=== PATIENT | male | born 1955 | race Caucasian/White ===

== ENCOUNTER 2024-11-11 15:48 | Emergency (ER) | payer OTHER, SELFPAY ==
[2024-11-11 15:50] VITALS: BP 159/102
--- NOTE | 2024-11-11 19:33 | ED.GENMED ---
History of Present Illness
<Love Ribera PA-C - Last Filed: 11/11/24 22:38>
General
Chief Complaint: Skin Surface Trauma
Source: patient
Exam Limitations: none
Time Seen by Provider: 11/11/24 19:30
Nursing documentation reviewed up to this point in time: agreed with
History of Present Illness
History of Present Illness:
68-year-old male with past medical's of hypertension, diverticulitis, does not take any blood thinner presents emergency department today with concerns of mechanical fall. Patient reports that he was helping his family move a car attachment trailer
when he lost his footing and tripped and fell, landing and hitting his forehead. Patient states that he endured a deep laceration above his left eyebrow but denies any headache denies any loss of consciousness denies any neck pain denies any
dizziness. He denies any nausea or vomiting. He states that he currently feels well and does not have any other symptoms other than some mild burning at the site of laceration. He is not up-to-date on his tetanus vaccine.
Past History
<Love Ribera PA-C - Last Filed: 11/11/24 22:38>
Past History
ED Past Medical History: HTN and Other (Diverticular GI bleed 2016; cholelithiasis)
ED Past Surgical History: Other (Inguinal hernia repair)
Social History
Tobacco: Non-smoker
Alcohol: None
Personal:
Living: with family
Employment: Employed (Self-employed)
Family History
Family History: Other (Noncontributory)
Review of Systems
<JERRELL Huang Last Filed: 11/11/24 22:38>
Review of Systems
All Other Systems: ROS reviewed and negative except as documented in HPI and ROS
Phy Exam
<Love Ribera PA-C - Last Filed: 11/11/24 22:38>
Physical Exam
Physical Exam:
General: Patient is well appearing and in no acute distress; non-toxic
Skin: Warm and dry, 2 cm laceration with associated bleeding abrasion noted to the area above the left eyebrow.
Head: Normocephalic, atraumatic, TMJ joints intact bilaterally, no tenderness palpation of the facial bones
Eyes: Sclera non-icteric. EOMs intact.
Cardiac: Regular rate and rhythm, no murmurs
Peripheral Vascular: No lower extremity swelling or edema
Pulm: Normal respiratory effort
Abdomen: No abdominal tenderness to palpation
Musculoskeletal: Degenerative palpation of the left upper extremity, full range of motion bilateral extremities, 5 out of 5 strength in bilateral upper and lower extremities
Neuro: CN II-XII intact, no focal neurologic deficits.
Psychiatric: Appropriate mood and affect.
Course
<Love Ribera PA-C - Last Filed: 11/11/24 22:38>
Orders/Labs/Results
Orders:
Orders
11/11/24 19:49
CT Head W/o Iv Contrast Urgent
Comment:
Reason For Exam: head trauma, headache
11/11/24 20:01
Tetanus/Diphth/Acelpertussis [Adacel] 0.5 ml IM .ONCE ONE
Vital Signs
Initial and Last Documented VS:
Initial Vital Signs
Temp Pulse Resp BP Pulse Ox
98.4 F 99 16 159/102 98
11/11/24 15:50 11/11/24 15:50 11/11/24 15:50 11/11/24 15:50 11/11/24 15:50
Last Documented Vital Signs
Temp Pulse Resp BP Pulse Ox
98.4 F 99 18 142/78 98
11/11/24 15:50 11/11/24 15:50 11/11/24 20:03 11/11/24 19:55 11/11/24 15:50
<Alirio Boyer DO - Last Filed: 11/11/24 20:15>
Orders/Labs/Results
Orders:
Orders
11/11/24 19:49
CT Head W/o Iv Contrast Urgent
Comment:
Reason For Exam: head trauma, headache
11/11/24 20:01
Tetanus/Diphth/Acelpertussis [Adacel] 0.5 ml IM .ONCE ONE
Vital Signs
Initial and Last Documented VS:
Initial Vital Signs
Temp Pulse Resp BP Pulse Ox
98.4 F 99 16 159/102 98
11/11/24 15:50 11/11/24 15:50 11/11/24 15:50 11/11/24 15:50 11/11/24 15:50
Last Documented Vital Signs
Temp Pulse Resp BP Pulse Ox
98.4 F 99 18 142/78 98
11/11/24 15:50 11/11/24 15:50 11/11/24 20:03 11/11/24 19:55 11/11/24 15:50
Procedures
<Love Ribera PA-C - Last Filed: 11/11/24 22:38>
Laceration Closure
Left Superior Eye brow:
Status of Wound: clean
Size of Wound in cm: 2
Description of Wound Edges: sharp and ragged
Preparation: cleaned with saline
Anesthesia: 1% Lidocaine with epi
Wound exploration: explored to base- no FB
Type of Closure: single layer closure
Skin Closure Material: 4-0 prolene
Number of sutures: 5
Additional information:
4 simple interrupted sutures placed, 1 figure of 8 suture placed for hemostasis over abrasion
<Love Ribera PA-C - Last Filed: 11/11/24 22:38>
MDM/Problems Addressed
Differential Diagnosis Includes:
see below
MDM/Problems Addressed:
Differentials include laceration, abrasion, subdural hematoma, epidural hematoma, concussion
68 female presents urgency department today following a fall and head strike. CT of the head normal. Laceration repaired with stitches by me and transitional year resident. Tetanus updated. Patient stable for discharge.
Chronic conditions affecting care:
n/a
<Love Ribera PA-C - Last Filed: 11/11/24 22:38>
*Pulse Oximetry
Patient hypoxic: no
*Critical Care Note
Total Time (30-74mins, 75-104mins- exclusive of procedures): Not Applicable
Data Reviewed
Review of Other/Old Records Reveals: Records
<JERRELL Huang Last Filed: 11/11/24 22:38>
Patient Management
Escalation/DeEscalation of care consider admission/obs:
reviewed case with my attending
patient stable for discharg r
ED Attending Note
<Love Ribera PA-C - Last Filed: 11/11/24 22:38>
-
Portions of this chart may have been created with voice recognition software.� Occasional wrong word or��sound alike� substitutions may have occurred due to the inherent limitations of voice recognition software.
<Alirio Boyer DO - Last Filed: 11/11/24 20:15>
ED Attending Note
Patient seen and examined by attending physician: Yes
I performed the substantive portion of visit, reviewed & personally made and approve the management plan that is documented in note by myself or WIL.: Yes
Discharge Plan
Departure
Patient Disposition: Home (Routine Discharge)
Date of Disposition: 11/11/24
Time of Disposition: 21:39
Patient with high blood pressure during this ER visit?: Yes
Condition: Good
Discharge Problem:
Laceration of forehead, Head injury due to trauma
Instructions: Wound Care (DC), Laceration Repair With Stitches (DC), BLOOD PRESSURE
Prescriptions:
No Action
lisinopril 10 MG tablet
10 mg PO HS
ntqbvuhb-pez-NR-lycopen-lutein [Centrum Silver] 1 EACH tablet
1 ea PO DAILY
acetaminophen [Tylenol Extra Strength] 500 MG tablet
1,000 mg PO Q6HPRN PRN (Reason: pain)
ibuprofen 200 MG tablet
600 mg PO QIDPRN PRN (Reason: pain) Qty: 1 0RF
oxycodone-acetaminophen 5 MG/325 MG tablet
1 tab PO Q4HPRN PRN (Reason: pain not relieved by ibuprofen) Qty: 15 0RF
Referrals:
UNKNOWN - PT DOES,NOT KNOW [Family Provider] -
Activity Restrictions/Additional Instructions:
Your CT scan of the head was normal.
5 stitches were placed in total. 4 simple interrupted stitches were placed and 1 cjehrz-ty-yxnmg stitch was placed. These can be removed in 10 days by your primary care provider.
Please keep the wound dry for 24 hours. After 24 hours, you can let warm soapy water run over the wound. Please not scrub the wound. You can apply bacitracin to the wound once daily. You can cover the wound with a nonadherent pad.
PLEASE RETURN EMERGENCY DEPARTMENT SHOULD YOU EXPERIENCE PURULENT DRAINAGE FROM THE WOUND, SURROUNDING SWELLING FROM THE WOUND, INCREASING PAIN, PERSISTENT HEADACHE, INTRACTABLE NAUSEA OR VOMITING, CHEST PAIN, SHORTNESS OF BREATH, OR ANY OTHER SIGNS
OR SYMPTOMS WORRISOME TO YOU.
Interventions
Interventions:
*Risk Screen - Suicide Last Done: 11/11/24 15:50
*General Assessment Last Done: 11/11/24 19:51
*Neglect/Abuse Screening Last Done: 11/11/24 19:51
ED- Fall Risk Assessment Last Done: 11/11/24 19:51
*ED COVID-19 Vaccine History Last Done: 11/11/24 19:51
*Nursing Disposition Last Done: 11/11/24 21:44
ED-Skin Assessment Last Done: 11/11/24 19:51
Discharge Date and Time
Discharge Date/Time: 11/11/24 21:44
Print Language: NIGERIEN
[2024-11-11 19:51] VITALS: BMI 28.5
[2024-11-11 19:55] VITALS: BP 142/78
[2024-11-11] MEDS: ADACEL 0.5 ML IM (20:09)
== END 2024-11-11 21:44 | disposition home or self-care (01) ==
LOC: EMR 15:48
PROVIDERS: EMERGENCY PHYSICIAN Emergency Medicine
DX: S01.81XA Laceration without foreign body of other part of head, initial encounter (principal); S09.90XA Unspecified injury of head, initial encounter; W01.0XXA Fall on same level from slipping, tripping and stumbling without subsequent striking against object, initial encounter; I10 Essential (primary) hypertension; Z23 Encounter for immunization
CPT/HCPCS: 99284; 12011; 90471; 70450; 90715

== ENCOUNTER 2024-12-21 12:15 | Emergency (ER) | payer SELFPAY ==
[2024-12-21 12:17] VITALS: BP 133/81
--- NOTE | 2024-12-21 13:57 | ED.SKININJ ---
HPI-Injury
General
Chief Complaint: Skin Surface Trauma
Source: patient
Exam Limitations: none
Time Seen by Provider: 12/21/24 13:34
Nursing documentation reviewed up to this point in time: agreed with
History of Present Illness-Injury
Is this injury a work related problem?: Yes
Is pt an associate of [facility]?: No
Initial Injury comments:
68-year-old male states he was at work when he caught a piece of metal equipment that was falling and lacerated the webspace between his right ring and 5th fingers. Tdap in 10/2024
Past History
Past History
ED Past Medical History: HTN and Other (Diverticular GI bleed 2016; cholelithiasis)
ED Past Surgical History: Other (Inguinal hernia repair)
Social History
Tobacco: Non-smoker
Alcohol: None
Personal:
Living: with family
Employment: Employed (Self-employed)
Family History
Family History: Other (Noncontributory)
Review of Systems
Review of Systems
Allergies reviewed?: Yes
All Other Systems: ROS reviewed and negative except as documented in HPI and ROS
Skin: Reports other (Cut right hand)
Skin Exam
Laceration
Webspace between right fourth and fifth fingers:
Length in cm: 0.6
Orientation: vertical
Type of Laceration: simple
Any active bleeding?: low grade venous oozing
Distal skin color and temperature: normal-warm & good color
Normal distal neurovascular exam: Yes
Range of motion: full
Phy Exam
Physical Exam
Physical Exam:
PHYSICAL EXAMINATION:
General: no apparent distress, not acutely ill
Neuro: alert and oriented.
Psychiatric: well kept. interactive and cooperative
Musculoskeletal: Moves with ease
Skin: Warm, pink.
Course
Vital Signs
Initial and Last Documented VS:
Initial Vital Signs
Temp Pulse Resp BP Pulse Ox
98.4 F 66 18 133/81 95
12/21/24 12:17 12/21/24 12:17 12/21/24 12:17 12/21/24 12:17 12/21/24 12:17
Last Documented Vital Signs
Temp Pulse Resp BP Pulse Ox
98.4 F 66 18 133/81 95
12/21/24 12:17 12/21/24 12:17 12/21/24 12:17 12/21/24 12:17 12/21/24 12:17
Procedures
Laceration Closure
Webspace between right fourth and fifth fingers:
Status of Wound: clean
Size of Wound in cm: 0.8
Description of Wound Edges: sharp
Preparation: cleaned with soap & water
Anesthesia: 1% Lidocaine
Revision/Debridement: routine- no revision
Wound exploration: explored to base- no FB and no tendon involvement
Type of Closure: single layer closure and interrupted sutures
Skin Closure Material: 4-0 nylon
Number of sutures: 2
Additional information:
Antibiotic ointment and Band-Aid applied
MDM/Problems Addressed
MDM/Problems Addressed:
68-year-old male states he was at work when he caught a piece of metal equipment that was falling and lacerated the webspace between his right ring and 5th fingers. Tdap in 10/2024
*Critical Care Note
Total Time (30-74mins, 75-104mins- exclusive of procedures): Not Applicable
ED Attending Note
-
Portions of this chart may have been created with voice recognition software.� Occasional wrong word or��sound alike� substitutions may have occurred due to the inherent limitations of voice recognition software.
Discharge Plan
Departure
Patient Disposition: Home (Routine Discharge)
Date of Disposition: 12/21/24
Time of Disposition: 13:57
Patient with high blood pressure during this ER visit?: No
Condition: Good
Discharge Problem:
Laceration of right hand
Instructions: Laceration Repair With Stitches (DC)
Prescriptions:
No Action
lisinopril 10 MG tablet
10 mg PO HS
umfinpln-com-WF-lycopen-lutein [Centrum Silver] 1 EACH tablet
1 ea PO DAILY
acetaminophen [Tylenol Extra Strength] 500 MG tablet
1,000 mg PO Q6HPRN PRN (Reason: pain)
ibuprofen 200 MG tablet
600 mg PO QIDPRN PRN (Reason: pain) Qty: 1 0RF
oxycodone-acetaminophen 5 MG/325 MG tablet
1 tab PO Q4HPRN PRN (Reason: pain not relieved by ibuprofen) Qty: 15 0RF
Referrals:
Your, Worker's Comp. provider [Other] - Call in 1-3 days for appt
Salinas Zuleta MD [Family Provider] -
Activity Restrictions/Additional Instructions:
As we discussed, have sutures removed in 10 to 12 days.
Keep the wound clean, dry and covered except for bathing until then
Seek medical care immediately for signs of infection which may include increasing pain, redness, swelling, pus drainage, red streak up the arm or fever
Interventions
Interventions:
*Risk Screen - Suicide Last Done: 12/21/24 12:17
*General Assessment Last Done: 12/21/24 12:17
*Neglect/Abuse Screening Last Done: 12/21/24 12:17
*Nursing Disposition Last Done: 12/21/24 14:05
ED-Skin Assessment Last Done: 12/21/24 14:01
Discharge Date and Time
Discharge Date/Time: 12/21/24 14:05
Print Language: [place]
== END 2024-12-21 14:05 | disposition home or self-care (01) ==
LOC: EMR 12:15
PROVIDERS: EMERGENCY PHYSICIAN Student in an Organized Health Care Education/Training Program; FAMILY PHYSICIAN Internal Medicine
DX: S61.411A Laceration without foreign body of right hand, initial encounter (principal); W20.8XXA Other cause of strike by thrown, projected or falling object, initial encounter; Y99.0 Civilian activity done for income or pay; I10 Essential (primary) hypertension
CPT/HCPCS: 12001; 99282

== ENCOUNTER 2024-12-29 17:08 | Emergency (ER) | payer OTHER, SELFPAY ==
[2024-12-29 17:17] VITALS: BP 132/77
[2024-12-29 17:48] VITALS: BMI 26.8
--- NOTE | 2024-12-29 19:24 | ED.MUSCINJ ---
HPI-Injury
General
Chief Complaint: Musculo-Skeletal Complaint
Source: patient
Time Seen by Provider: 12/29/24 17:36
History of Present Illness-Injury
Initial Injury comments:
69-year-old male presents for evaluation of right thigh pain. He sustained an injury at work 1 week ago where a large piece ointment fell on his right leg. He came here as he cut his hand at that time and had stitches in his hand he did have
significant pain or bruising in his leg as he does now. He notes his right thigh is covered in bruising. It hurts to bear weight slightly. No chest pain or shortness of breath. No other
Past History
Past History
ED Past Medical History: HTN and Other (Diverticular GI bleed 2016; cholelithiasis)
ED Past Surgical History: Other (Inguinal hernia repair)
Social History
Tobacco: Non-smoker
Alcohol: None
Personal:
Living: with family
Employment: Employed (Self-employed)
Family History
Family History: Other (Noncontributory)
Phy Exam
Physical Exam
Physical Exam:
General: Well-appearing male no acute respiratory distress
HEENT: Normocephalic atraumatic
Musculoskeletal exam: Right thigh tender over the medial mid thigh with overlying ecchymosis. This is slightly tender. No erythema or induration
Extremities: No cyanosis
Injury Course
Orders/Labs/Results
Orders:
Orders
12/29/24 18:00
CR Femur - Right Min 2 Vw Urgent
Comment:
Reason For Exam: pain, bruising
Venous Doppler Lwr Ext Rt [US Periph Venous LOWER Ext RT] Urgent
Comment:
Reason For Exam: swelling
MDM/Problems Addressed
Differential Diagnosis Includes:
Pain and ecchymosis right thigh. Consider hematoma versus contusion versus muscular strain versus fracture or DVT
Personally visualized x-rays of the right femur which were negative for acute fracture. Ultrasound right leg was ordered and there is no DVT. Suspect underlying hematoma recommended ice or Tylenol or ibuprofen. Stable for the
*Critical Care Note
Total Time (30-74mins, 75-104mins- exclusive of procedures): Not Applicable
ED Attending Note
-
Portions of this chart may have been created with voice recognition software.� Occasional wrong word or��sound alike� substitutions may have occurred due to the inherent limitations of voice recognition software.
Discharge Plan
Departure
Patient Disposition: Home (Routine Discharge)
Date of Disposition: 12/29/24
Time of Disposition: 19:27
Patient with high blood pressure during this ER visit?: No
Discharge Problem:
Contusion
Instructions: Contusion (DC)
Prescriptions:
No Action
lisinopril 10 MG tablet
10 mg PO HS
lhfykwcz-orp-AS-lycopen-lutein [Centrum Silver] 1 EACH tablet
1 ea PO DAILY
acetaminophen [Tylenol Extra Strength] 500 MG tablet
1,000 mg PO Q6HPRN PRN (Reason: pain)
ibuprofen 200 MG tablet
600 mg PO QIDPRN PRN (Reason: pain) Qty: 1 0RF
oxycodone-acetaminophen 5 MG/325 MG tablet
1 tab PO Q4HPRN PRN (Reason: pain not relieved by ibuprofen) Qty: 15 0RF
Referrals:
NONE,* [Family Provider] -
Activity Restrictions/Additional Instructions:
There is no fracture or blood clot noted on today's workup. I suspect this is a hematoma. You may apply warm compresses to the area and use ibuprofen. Return if needed
Interventions
Interventions:
*Risk Screen - Suicide Last Done: 12/29/24 17:17
*General Assessment Last Done: 12/29/24 17:17
*Neglect/Abuse Screening Last Done: 12/29/24 17:17
*ED- Fall Risk Assessment Last Done: 12/29/24 17:48
*ED COVID-19 Vaccine History Last Done: 12/29/24 17:48
ED-Musculoskeletal Assessment Last Done: 12/29/24 17:49
Discharge Date and Time
Print Language: MACANESE
== END 2024-12-29 19:40 | disposition home or self-care (01) ==
LOC: EMR 17:08
PROVIDERS: EMERGENCY PHYSICIAN Student in an Organized Health Care Education/Training Program
DX: S70.11XA Contusion of right thigh, initial encounter (principal); X58.XXXA Exposure to other specified factors, initial encounter; M79.651 Pain in right thigh; I10 Essential (primary) hypertension
CPT/HCPCS: 99284; 73552; 93971